=== PATIENT | male | born 1980 | race Caucasian/White ===

== ENCOUNTER 2020-08-22 12:47 | Emergency (ER) | payer OTHER, SELFPAY ==
[2020-08-22] VITALS (7 sets, daily range): BP systolic 102–194; BP diastolic 74–78; PULSE 59–78; RESP 18; TEMP 36.8; O2SAT 94–98; BMI 27.1
--- NOTE | 2020-08-22 12:53 | XRR_ITS ---
PROCEDURE INFORMATION: Exam: XR Right Hand Exam date and time: 08/22/2020 1:06 PM Age: 40 years old Clinical indication: Injury or trauma; Other: Crushing in a pto belt; Right; Index finger and middle finger and ring finger TECHNIQUE: Imaging protocol: XR Right hand. Views: 3 or more views. COMPARISON: No relevant prior studies available. FINDINGS: Bones/joints: Multiple small bone fragments in the region of the index finger distal phalanx suggesting possible amputation/partial amputation through the base of the index finger distal phalanx. Dislocation of the ring finger DIP joint. The fingers are somewhat curled/flexed and overlapping which somewhat limits the interpretation. Soft tissues: Normal. XR/XR hand RT min 3V* [id number] IMPRESSION: 1. Multiple small bone fragments in the region of the index finger distal phalanx suggesting possible amputation/partial amputation through the base of the index finger distal phalanx. 2. Dislocation of the ring finger DIP joint. 3. The fingers are somewhat curled/flexed and overlapping which somewhat limits the interpretation.
--- NOTE | 2020-08-22 12:53 | XRR_ITS ---
PROCEDURE INFORMATION: Exam: XR Right Hand Exam date and time: 08/22/2020 1:39 PM Age: 40 years old Clinical indication: Injury or trauma; Other: Crushing injury pto belt; Right; Index finger and middle finger and ring finger TECHNIQUE: Imaging protocol: XR Right hand. Views: 3 or more views. COMPARISON: CR XR hand RT min 3V* [id number] 08/22/2020 12:55 PM FINDINGS: Bones/joints: Dorsal dislocation of the ring finger distal phalanx with respect to the middle phalanx. Partial amputation of the index finger through the base of the distal phalanx with comminuted intra-articular fracture of the distal phalanx. Possible 2 mm intra-articular avulsion fracture involving the ulnar base of the middle finger distal phalanx. Soft tissues: Deep soft tissue laceration through the tip of the middle finger. XR/XR hand RT min 3V* [id number] IMPRESSION: 1. Dorsal dislocation of the ring finger distal phalanx with respect to the middle phalanx. 2. Partial amputation of the index finger through the base of the distal phalanx with comminuted intra-articular fracture of the distal phalanx. 3. Deep soft tissue laceration through the tip of the middle finger. 4. Possible 2 mm intra-articular avulsion fracture involving the ulnar base of the middle finger distal phalanx.
--- NOTE | 2020-08-22 12:57 | W.ED.TRAUMA ---
HPI - Trauma General: Chief Complaint: Extremity Injury, Upper Stated Complaint: R HAND INJURY Time Seen by Provider: 08/22/20 12:53 History of Present Illness: HPI narrative: The patient is a 40-year-old male who comes to the ER with multiple finger amputation and fractures apparent after he got his right fingers 2 through 5 stuck in a PTO belt. He has a makeshift tourniquet using a belt around his wrist because it was squirting blood. injury at approximately 1230 and belt placed shortly after injury. MD complaint: injury Onset (ago): minute(s) (20) Loss of Consciousness: no Severity: severe Severity scale (1-10): 10 Associated symptoms: Denies abdominal pain, back pain, chest pain, confusion, dizziness or headache(s) Treatments prior to arrival: tourniquet Review of Systems General: Reports: 10 or more systems reviewed and unremarkable except in HPI and below Const: Denies: fatigue Eyes: Denies: change in vision, blurry vision or eye redness ENMT: Denies: throat pain, swelling of lips/tongue, ear or mastoid pain or nasal congestion Card: Denies: chest pain, palpitations, irregular heart rhythm, edema, dyspnea on exertion or orthopnea Resp: Denies: dyspnea, productive cough or non-productive cough GI: Denies: abdominal pain, diarrhea or GI cramping : Denies: flank pain, urinary frequency or urinary urgency Musc: Reports: other (right finger injury/amputation); Denies: neck pain, back pain, extremity pain, joint pain, joint redness, limited range of motion or muscle weakness Skin/Breast: Denies: rash, pruritus, erythema, skin pain or skin tenderness Neuro: Denies: headache(s), numbness in extremities, weakness in extremities, sensory changes, difficulty walking, dizziness, confusion or Slurred speech present Psych: Denies: anxiety or depression Endo: Denies: polyuria All/Imm: Denies: urticaria, throat swelling or tongue swelling Physical Exam Const: COMMON NORMALS: no acute distress, average body habitus, patient oriented x3, no limitations, alert and well nourished GENERAL APPEARANCE: cooperative, anxious and ill appearing ORIENTATION/CONSCIOUSNESS: Yes awake, Yes oriented to person, Yes oriented to place and Yes oriented to time HENMT: COMMON NORMALS: normocephalic, external ears normal and Normal external nose present HEAD & SCALP: normal to inspection and normocephalic NOSE: Normal external nose present EXTERNAL EAR: Yes external ears normal MOUTH: Normal oral and palatal mucosa present THROAT: posterior oropharynx normal Eye: COMMON NORMALS: Equal, round and reactive pupils present and EOMs intact bilaterally GENERAL EYE: appearance normal, both eyes and all related structures PUPIL: Yes Equal, round and reactive pupils present Neck/C-Spine: COMMON NORMALS: full ROM, no lymphadenopathy, no meningeal signs and no JVD GENERAL: Yes normal visual inspection Lymph: LYMPHATIC: no lymphadenopathy noted Chest: COMMONS NORMALS: normal inspection of the chest and normal palpation of entire chest wall Resp: COMMON NORMALS: normal respiratory effort, No retractions, No use of accessory muscles, clear to auscultation bilaterally and percussion normal EFFORT & INSPECTION: Yes able to speak in complete sentences AUSCULTATION: clear to auscultation bilaterally PERCUSSION: percussion normal Cardio: COMMON NORMALS: no JVD, regular rate, regular rhythm, S1 normal heart sound present, S2 normal heart sound present and Peripheral pulses 2+ throughout RATE: regular rate RHYTHM: regular rhythm HEART SOUNDS: S1 normal heart sound present and S2 normal heart sound present PERIPHERAL PULSES: Peripheral pulses 2+ throughout GI: COMMON NORMALS: Normal to inspection, nondistended, normoactive bowel sounds present, Soft to palpation, non-tender and no masses INSPECTION: Yes normal to inspection PALPATION: Yes Soft to palpation : COMMON NORMALS: Yes no CVA tenderness BLADDER/KIDNEY EXAM: Yes no CVA tenderness Back/Pelvis: COMMON NORMALS: no CVA tenderness, thoracic and lumbar spine normal to inspection, no thoracic nor lumbar tenderness and thoraco-lumbar ROM normal Extremity: COMMON NORMALS: normal to inspection, full ROM, capillary refill normal, no joint enlargement and no pedal edema NARRATIVE EXTREMITY EXAM: He has injuries to fingers 2-5 on the right. Finger 2: Amputated at near DIP Finger 3: Crush injury but intact FInger 4: Fracture of distal finger with lateral angulation FInger 5: laceration. Extent of injuries difficult to tell with blood and pain with exam. GENERAL: Yes normal exam except as noted Neuro: COMMON NORMALS: patient oriented x3, CN's II-XII intact bilaterally, moves all extremities, no focal motor deficits, no sensory deficits noted and gait normal SENSORIUM/ORIENTATION: Yes alert, Yes oriented to person, Yes oriented to place and Yes oriented to time MENINGEAL SIGNS: Yes no meningeal signs Psych: COMMON NORMALS: mental status grossly normal, Normal thought process present, cooperative, normal affect and speech normal SPEECH: Yes normal speech THOUGHT PROCESS: Normal thought process present Skin: COMMON NORMALS: no rashes or lesions noted GENERAL SKIN EXAM: no rashes or lesions noted Procedures Nerve Block Nerve Block 1: Time out performed: Yes Local Anesthetic: lidocaine 1% Amount of anesthesia used (mL): 4 Side: right Nerve Blocks: digital (right 4th digit) Procedure Successful: Yes Patient Tolerated Procedure: well Complications: none Additional Comments: cleaned with chloraprep and allowed to dry. sterile technique used. Distal phalanx reduced with ease and pain free. Orthopedic Joint Reduction right 4th distal phalanx: Time Out Performed: Yes Side: right Joint Reduction Location: other (right 4th distal phalanx) Analgesia: none (digital block) Local Anesthesia: lidocaine 1% Amount of anesthesic used (mL): 4 Technique used: traction/counter-traction Post-reduction neuro exam: intact Post-reduction vascular: intact Post Reduction X-Ray Obtained: No (transfer to [facility] no time it is obviously reduced.) Splint Applied: No Patient Tolerated Procedure: well Additional Comments: transfer to [facility] ed by pov by pts preference. offered ems. Course Vital Signs: Vital signs: Vital Signs Temperature 98.3 F 08/22/20 12:53 Pulse Rate 66 08/22/20 13:43 Respiratory Rate 18 08/22/20 13:43 Blood Pressure 194/78 08/22/20 13:17 Pulse Oximetry 96 08/22/20 13:43 MDM - Trauma MDM Narrative: Medical decision making narrative: The patient came in after getting his right 4 fingers caught in a PTO belt. He has significant injuries including amputation of distal phalanx to the second finger, laceration to the third digit and dislocation of the fourth digit. The fifth digit on closer look appears minimally injured. Thumb uninjured. Neurovascularly intact to the fingertips. Good cap refill. Discussed with Dr. Verde hand surgeon at [facility] who recommended transfer. Right fourth distal phalanx anesthetized with a digital block and reduced successfully. Offered EMS transfer. Patient and family refused and preferred private vehicle transfer. Wound was wrapped in iodine gauze and given Dilaudid, IV fluids, 2 g Ancef. Lab Data: Labs: Lab Results 08/22/20 08/22/20 08/22/20 Range/Units 12:57 12:57 13:18 WBC 9.5 (4.0-10.0) 10^3/ uL RBC 4.68 (4.1-5.3) 10^6/u L Hgb 14.6 (11.7-16.6) g/dL Hct 43.3 (42.0-52.0) % MCV 92.5 (80-94) fL MCH 31.2 (28.0-34.0) pg MCHC 33.7 (30.0-36.0) g/dL RDW 12.7 (12.1-15.1) % Plt Count 278 (130-400) 10^3/c mm MPV 10.9 H (7.4-10.4) fL Neut % (Auto) 52.9 % Lymph % (Auto) 40.0 % [place] % (Auto) 5.4 % Eos % (Auto) 1.0 % Baso % (Auto) 0.4 % Neut # (Auto) 5.04 (1.8-7.7) 10^3/u L Lymph # (Auto) 3.8 (0.8-4.8) 10^3/u L [place] # (Auto) 0.5 (0.2-0.9) 10^3/u L Eos # (Auto) 0.1 (0.0-0.8) 10^3/u L Baso # (Auto) 0.0 (0.0-0.1) 10^3/u L Nucleated RBC % (a uto) 0 % Nucleated RBCs # 0.0 /100WBC Sodium 142 (136-145) mmol/L Potassium 3.9 (3.5-5.1) mmol/L Chloride 106 (98-107) mmol/L Carbon Dioxide 27 (22-29) mmol/L Anion Gap 12.9 (5-19) BUN 20 (6-20) mg/dL Creatinine 0.9 (0.7-1.2) mg/dL GFR Calculation 93.5 (90-130) mL/min Glucose 116 H (65-115) mg/dL Calculated Osmolal ity 298 H (285-295) mOsm/k g Lactate 1.2 (0.5-2.2) mmol/L Calcium 8.8 (8.5-10.5) mg/dL Total Bilirubin 0.6 (0.15-1.2) mg/dL AST 19 (0-40) U/L ALT 20 (0-41) U/L Alkaline Phosphata se 49 (40-130) IU/L Total Protein 6.6 (6.6-8.7) g/dL Albumin 4.5 (3.5-5.2) g/dL Globulin 2.1 (1.3-4.6) g/dL Critical Care Time Critical Care Time: Critical Care Time: Yes Total Critical Care Time: 60 Attestation: Care of traumatic amputation to finger and reduction of distal phalanx. Discussion with hand surgeon at [facility] and transfer arranged. Discharge Plan Discharge Patient Disposition: Xfer Short-Term Hosp Condition: Stable Referrals: Carlos Angel [Primary Care Provider] - Patient Instructions: Finger Amputation (ED) Activity Restrictions/Additional Instructions: Please drive directly to [facility] ED. Do not eat or drink anything and check in. I have spoken with Dr. Epperson their hand surgeon who will see you there. Please expect a Covid swab when you arrive. Coding Level of Care Code ED [employer] Engineer for Greg Fwd Exam Comprehensive
[2020-08-22] MEDS: HYDROmorphone 1 mg/mL INJ 1 mL IVP (13:05)
[2020-08-22] MEDS: sodium chloride 0.9% 1,000 ML 999 ML IV (13:05)
[2020-08-22] MEDS: tetanus-dipt-pertussis 0.5 mL SDV IM (13:06)
[2020-08-22 13:13] LABS: Basophils % 0.4 %; Eosinophils # 0.1 10^3/uL (0.0-0.8); Hematocrit 43.3 % (42.0-52.0); Hemoglobin 14.6 g/dL (11.7-16.6); Lymphocytes # 3.8 10^3/uL (0.8-4.8); Mean Corpuscular HGB Conc 33.7 g/dL (30.0-36.0); Mean Corpuscular Hemoglobin 31.2 pg (28.0-34.0); Mean Corpuscular Volume 92.5 fL (80-94); Mean Platelet Volume 10.9 fL (7.4-10.4); Monocytes # 0.5 10^3/uL (0.2-0.9); Monocytes % 5.4 %; Neutrophils # 5.04 10^3/uL (1.8-7.7); Neutrophils % 52.9 %; Nucleated Red Blood Cells % 0 %; Platelet Count 278 10^3/cmm (130-400); Red Blood Count 4.68 10^6/uL (4.1-5.3); Red Cell Distribution Width 12.7 % (12.1-15.1); White Blood Count 9.5 10^3/uL (4.0-10.0)
[2020-08-22 13:33] LABS: Alanine Aminotransferase 20 U/L (0-41); Albumin Level 4.5 g/dL (3.5-5.2); Alkaline Phosphatase 49 IU/L (40-130); Anion Gap 12.9 (5-19); Aspartate Amino Transferase 19 U/L (0-40); Blood Urea Nitrogen 20 mg/dL (6-20); Calcium 8.8 mg/dL (8.5-10.5); Carbon Dioxide 27 mmol/L (22-29); Chloride 106 mmol/L (98-107); Globulin 2.1 g/dL (1.3-4.6); Glomerular Filtration Rate 93.5 mL/min (90-130); Glucose 116 mg/dL (65-115); Osmolality Calculated 298 mOsm/kg (285-295); Potassium 3.9 mmol/L (3.5-5.1); Sodium 142 mmol/L (136-145); Total Bilirubin 0.6 mg/dL (0.15-1.2); Total Protein 6.6 g/dL (6.6-8.7)
[2020-08-22 13:44] LABS: Lactate (Lactic Acid level) 1.2 mmol/L (0.5-2.2)
[2020-08-22] MEDS: ceFAZolin 1,000 MG in sodium chloride 0.9% (plus) 50 ML 100 MG IV ×2 (13:54)
[2020-08-22] MEDS: lidocaine 1% INJ 20 mL SUBCUT (13:56)
== END 2020-08-22 14:32 | disposition short-term general hospital (02) ==
PROVIDERS: Emergency Provider Family Medicine; PCP Family Medicine
DX: S68.120A Partial traumatic metacarpophalangeal amputation of right index finger, initial encounter (principal); S61.212A Laceration without foreign body of right middle finger without damage to nail, initial encounter; S63.254A Unspecified dislocation of right ring finger, initial encounter; Z23 Encounter for immunization; W31.89XA Contact with other specified machinery, initial encounter
CPT/HCPCS: 26770; 73130; 80053; 83605; 85025; 90471; 90715; 96365; 96367; 96375; 99284; J0690; J1170; J7030